=== PATIENT | female | born 1980 | race American Indian/Alaskan Native ===

== ENCOUNTER 2017-07-20 14:06 | Outpatient (CLI) | payer BC ==
--- NOTE | 2017-07-20 16:31 | Magnetic Resonance Report ---
MRI of the left shoulder. History: Left shoulder pain. Procedure: Multiplanar multisequence study was performed without contrast. Findings: There is minimal curvilinear hyperintense T2 signal in the supraspinatus tendon without thickening. There is no fluid in the subacromial subdeltoid bursa. The infraspinatus and subscapularis tendons appear normal. The labrum is intact. The biceps tendon appears normal with normal position of the tendon within the bicipital groove. There is no evidence of joint effusion. Impression: Mild supraspinatus tendinosis.
== END 2017-07-20 14:07 | disposition home or self-care (01) ==
LOC: MRI 14:06
PROVIDERS: ATTEND Orthopaedic Surgery
DX: M75.92 Shoulder lesion, unspecified, left shoulder (principal); M25.512 Pain in left shoulder

== ENCOUNTER 2017-08-23 09:54 | Day surgery (SDC) | payer BC ==
[~2017-08-23 09:54] MED LIST: ADRENALIN IV ONE; ANCEF/STERILE WATER 2 GM/20 ML IV NR; DEPO-MEDROL INTRA-ARTI ONE; NACL 0.9% 1000 ML 1,000 ML IV SCH; PEPCID PO NR; VERSED IV NR
[2017-08-23] MEDS ORDERED: SUBLIMAZE IV ONE (10:00)
[2017-08-23] MEDS ORDERED: DEPO-MEDROL ONE (10:55)
[2017-08-23] MEDS ORDERED: ADRENALIN ONE (10:55)
[2017-08-23] MEDS ORDERED: MARCAINE 0.5% INFILTRATI ONE ×2 (10:55→13:16)
--- NOTE | 2017-08-23 11:11 | Anesthesia Consultation ---
Anesthesia Consult and Med Hx Date of service: 08/23/17 - Airway Anesthetic Teeth Evaluation: Good, Crowns (top right) ROM Head & Neck: Adequate Mental/Hyoid Distance: Adequate Mallampati Class: Class II Intubation Access Assessment: Probably Good - Pulmonary Exam CTA: Yes - Cardiac Exam Cardiac Exam: RRR - Pre-Operative Health Status ASA Pre-Surgery Classification: ASA2 Proposed Anesthetic Plan: General - Pulmonary Hx Smoking: No Hx Asthma: Yes (INHALERS PRN) Hx Sleep Apnea: No (REHAN PRE SCREEN NEGATIVE) - Cardiovascular System Hx Hypertension: No - Endocrine Hx Renal Disease: No Hx Non-Insulin Dependent Diabetes: No - Hematic Hx Anemia: Yes (NOT RECENT) - Other Systems Hx Cancer: No - Additional Comments Anesthesia Medical History Comments: ponv
[2017-08-23] MEDS ORDERED: DIPRIVAN 10 MG/ML IV ONE (11:13)
[2017-08-23] MEDS ORDERED: SUBLIMAZE ONE (11:13)
[2017-08-23] MEDS ORDERED: DECADRON ONE ×2 (11:17→12:53)
[2017-08-23] MEDS ORDERED: NACL BACTERIOSTATIC INFILTRATI ONE (11:17)
[2017-08-23] MEDS ORDERED: XYLOCAINE 1% 20 mL ONE (11:18)
[2017-08-23] MEDS ORDERED: MARCAINE 0.5% 30 ML INFILTRATI ONE (11:18)
[2017-08-23] MEDS ORDERED: TRANSDERM-SCOP TD NR (12:00)
[2017-08-23] MEDS ORDERED: ZOFRAN ONE ×2 (12:53)
[2017-08-23] MEDS ORDERED: ZEMURON IV ONE (12:53)
[2017-08-23] MEDS ORDERED: ROBINUL ONE ×2 (12:53→12:54)
[2017-08-23] MEDS ORDERED: XYLOCAINE MPF 2% ONE (12:53)
[2017-08-23] MEDS ORDERED: NEOSTIGMINE ONE (12:53)
[2017-08-23] MEDS ORDERED: QUELICIN ONE (12:53)
[2017-08-23] MEDS ORDERED: LACTATED RINGERS 1,000 ML ONE (12:54)
[2017-08-23] MEDS ORDERED: DEPO-MEDROL INTRA-ARTI ONE (13:25)
[2017-08-23] MEDS ORDERED: ADRENALIN IV ONE (13:25)
--- NOTE | 2017-08-23 15:18 | Post Anesthesia Evaluation ---
- Post Anesthesia Evaluation Patient Participated: Yes Airway Patent: Yes Stable Respiratory Function: Yes Nausea/Vomiting: No Temp > 96.8F: Yes Pain Manageable: Yes Adequeate Hydration: Yes Anesthesia Complications: No Patient on Ventilator: No
--- NOTE | 2017-08-23 15:18 | Anesthesia Day of Surgery ---
Anesthesia Day of Surgery - Day of Surgery Patient Examined: Yes Patient is NPO: Yes
[2017-08-23 15:59] VITALS: BP 119/88
--- NOTE | 2017-08-23 18:43 | Procedure Note ---
Date of procedure: 08/23/17 Pre-op diagnosis: left shoulder pain Post-op diagnosis: other (subacromial bursitis with bony impingement) Procedure: Arthroscopy left shoulder with subacromial decompression The patient was brought to after being given a scalene nerve block for postop pain management following entrance into the OR she was placed on the OR table in a supine position following induction and intubation she was placed in a right lateral decubitus position at which point the left shoulder was prepped and draped in a routine sterile manner routine arthroscopic portals were made following introduction of the arthroscope into the glenohumeral joint examination revealed the patient to have an intact rotator cuff with some mild fraying noted in the superior labrum, using the arthroscopic probe the labrum was inspected and was found to be stable both superiorly and anteriorly as well as posteriorly there was minimal chondromalacia changes at both the humeral head and glenoid surfaces, the arthroscopic shaver was brought in and some mild debridement was performed in this area. Next the arthroscope was repositioned into the subacromial space examination revealed abundant beginning with partial tears noted in the supraspinatus tendon again probing this region the tendon appeared to be intact and the tears were assessed and partial-thickness tear as well involving less than 20%. A high-speed bur was used to remove bone from the posterior acromion was then taken through range of motion and any remaining areas of impingement were debrided as well. The shoulder joint was then copiously irrigated to remove any excess bone and soft tissue debris The stab wounds were repaired using 3-0 nylon a Marcaine and Kenalog mixture was then injected into the subacromial space. Routine postop dressings were applied the patient tolerated the procedure there were no complications she was taken to postanesthesia recovery in a stable condition
== END 2017-08-23 16:40 | disposition home or self-care (01) ==
LOC: OR 09:54
PROVIDERS: ATTEND Orthopaedic Surgery
DX: M75.52 Bursitis of left shoulder (principal); M25.812 Other specified joint disorders, left shoulder; M94.212 Chondromalacia, left shoulder; J45.909 Unspecified asthma, uncomplicated
CPT/HCPCS: 29826; 81025; J0171; J0330; J0690; J1030; J1100; J2250; J2405; J2704; J2710; J3010; J7030; J7120

== ENCOUNTER 2018-01-17 16:37 | Outpatient (CLI) | payer BC ==
--- NOTE | 2018-01-18 08:58 | Magnetic Resonance Report ---
MRI UPPER EXTREMITY JOINT LEFT WITHOUT CONTRAST HISTORY: Pain in left shoulder. TECHNIQUE: Multisequence, multiplanar MR imaging with and without fat suppression was performed through the left shoulder. Axial gradient imaging. COMPARISON: 07/20/17. FINDINGS: The bone marrow signal is within normal limits. No evidence for fracture, dislocation, ligamentous injury or bone marrow edema. The joint spaces are within normal limits. No significant arthritic changes or erosive joint pathology. The supraspinatus, subscapularis and teres minor tendons are intact and unremarkable. Mild tendinosis of the distal supraspinatus tendon has resolved since the previous exam. There is mild thickening and increased intrinsic signal within the distal infraspinatus tendon on today's exam. There may be a pinhole full-thickness tear in the distal infraspinatus tendon which is best demonstrated on images 14 and 15 of the sagittal proton density fat sat images. No large full thickness tear or detachment. The biceps tendon and its anchor upon the superior labrum are within normal limits. No gross labral abnormality although arthrogram was not performed. There is trace fluid in the subacromial and subdeltoid bursa and along the course of the infraspinatus tendon. No significant joint effusion. IMPRESSION: Mild tendinosis of the distal infraspinatus tendon. I question if there is a tiny pinhole full-thickness tear in the distal supraspinatus tendon as described. Trace bursal fluid. Mild tendinosis of the distal supraspinatus tendon has improved or resolved since the previous exam.
== END 2018-01-17 16:38 | disposition home or self-care (01) ==
LOC: MRI 16:37
PROVIDERS: ATTEND Orthopaedic Surgery
DX: M75.82 Other shoulder lesions, left shoulder (principal)

== ENCOUNTER 2019-10-26 08:13 | Day surgery (SDC) | payer BC, MEDICAID ==
[~2019-10-26 08:13] MED LIST changes: -ADRENALIN IV ONE; -ANCEF/STERILE WATER 2 GM/20 ML IV NR; +BUPIVACAINE/PF (0.5%) 5 MG/1 ML 30 ML VIAL INFILTRATI ONE; -DEPO-MEDROL INTRA-ARTI ONE; +LIDOCAINE (1%) 10 MG/1 ML VIAL 20 ML MDV ONE; -NACL 0.9% 1000 ML 1,000 ML IV SCH; -PEPCID PO NR; -VERSED IV NR; +methylPREDNISolone ACETATE 40 MG/1 ML INJ ONE
[2019-10-26 08:40] VITALS: BP 137/77
[2019-10-26] MEDS ORDERED: LIDOCAINE (1%) 10 MG/1 ML VIAL 20 ML MDV INFILTRATI ONE ×2 (09:00)
[2019-10-26] MEDS ORDERED: BUPIVACAINE/PF (0.5%) 5 MG/1 ML 30 ML VIAL INFILTRATI ONE ×2 (09:00)
--- NOTE | 2019-10-26 11:20 | XRay Report ---
LEFT SHOULDER 2 VIEWS INDICATION: LT SHOULDER CHRONIC PAIN/NERVE BLOCK. COMPARISON: None. IMPRESSION: 31 seconds of fluoroscopy time was provided by radiology for needle placement at the lef t shoulder for nerve block. 2 images demonstrate needle placement along the anterior margin of the gl enoid and lateral margin of the humeral head neck junction. The bony structures are intact and unrema rkable. No significant DJD. Please correlate with the procedural report by Dr. Gayle as needed. Signer Name: Eduardo Toro Jr, MD Signed: 10/26/2019 11:16 AM Workstation Name: [id number]
--- NOTE | 2019-10-26 12:09 | Procedure Note ---
Date of procedure: 10/26/19 Pre-op diagnosis: chronic left shoulder pain Post-op diagnosis: same Procedure: Suprascapular and axillary nerve block left shoulder Procedure The patient was brought to the operating room from observation room She was instructed to lie prone on the OR table, the posterior and lateral aspect of the left shoulder was prepped and draped in the usual sterile manner a timeout procedure was done to identify the patient and the correct operative site. Using C-arm fluoroscopy the glenoid rim was visualized using lidocaine for local anesthesia a spinal needle was introduced and directed towards the superior and middle portions of the glenoid rimwas done via C-arm visualization upon impacting the bony rim of asthma of the glenoid after cement Marcaine was injected along the superior and middle portions of the glenoid and the spinal needle was then removed and the greater tuberosity was seen in the proximal on the proximal humerus again localizing this level. This area lidocaine was injected into the skin this was followed by advancement of the spinal needle into the correct position just touching bone laterally next the stylette was removed and Marcaine was injected at this location as well next the spinal needle was removed and the skin was cleansed with saline solution a small Band- Aid was then applied. The patient tolerated the procedure there were no complications she was taken to observation and will be discharged to home Anesthesia: local Surgeon: HEIDY BENDER Estimated blood loss: minimal Pathology: none Condition: stable Disposition: observation
== END 2019-10-26 09:28 | disposition home or self-care (01) ==
LOC: OR 08:13
PROVIDERS: ATTEND Orthopaedic Surgery
DX: M25.512 Pain in left shoulder (principal); G89.29 Other chronic pain; J45.909 Unspecified asthma, uncomplicated; E03.9 Hypothyroidism, unspecified; F32.9 Major depressive disorder, single episode, unspecified; F41.9 Anxiety disorder, unspecified; Z79.899 Other long term (current) drug therapy; Z87.440 Personal history of urinary (tract) infections; Z98.890 Other specified postprocedural states; Z86.2 Personal history of diseases of the blood and blood-forming organs and certain disorders involving the immune mechanism
CPT/HCPCS: 64417; 64418; 73020; J1030